=== PATIENT | female | born 1975 | race American Indian/Alaskan Native ===

== ENCOUNTER 2021-07-19 18:39 | Inpatient (IN) | payer SELFPAY ==
[2021-07-19 22:01] LABS: Bacteria,Urine 1+ /HPF (Negative); Bilirubin,Urine MOD (Negative); Blood,Urine SM (Negative); Color,Urine Amber (Yellow); Mucus,Urine 3+ /HPF
[2021-07-19 22:18] LABS: Hematocrit 43.2 % (30.3-42.9); Mean Corpuscular HGB Conc 35 % (30-34); Mean Corpuscular Volume 87 fl (79-97); Platelet Count 386 K/mm3 (140-440); Red Blood Count 4.98 M/mm3 (3.65-5.03); Red Cell Distribution Width 14.9 % (13.2-15.2)
[2021-07-19 22:20] LABS: Ictotest,Urine Negative (Negative)
[2021-07-19 22:34] LABS: Blood Urea Nitrogen 8 mg/dL (7-17); Calcium 9.6 mg/dL (8.4-10.2); Hemolysis Index 41
[2021-07-19 22:38] LABS: Alanine Aminotransferase 12 units/L (7-56); Albumin 3.8 g/dL (3.9-5)
[2021-07-19 22:48] LABS: BUN/Creatinine Ratio 13
[2021-07-19 22:49] LABS: Bilirubin,Direct < 0.2 mg/dL (0-0.2)
[2021-07-19] MEDS ORDERED: ONDANSETRON 4 MG/2 ML INJ IV ONE (23:02)
[2021-07-19] MEDS ORDERED: metroNIDAZOLE/NS 500 MG/100 ML 500 MG/100 ML BAG IV ONE (23:02)
[2021-07-19] MEDS ORDERED: FAMOTIDINE 20 MG/2 ML INJ IV ONE (23:02)
[2021-07-19] MEDS ORDERED: MORPHINE 4 MG/1 ML INJ IV ONE (23:02)
[2021-07-19] MEDS ORDERED: levoFLOXacin 500 MG TAB PO ONE (23:02)
--- NOTE | 2021-07-20 00:33 | Cat Scan Report ---
CT ABDOMEN AND PELVIS WITH CONTRAST INDICATION / CLINICAL INFORMATION: Left lower quadrant pain. TECHNIQUE: Axial CT images were obtained through the abdomen and pelvis after Omnipaque 300, 100 cc I V contrast. All CT scans at this location are performed using CT dose reduction for ALARA by means o f automated exposure control. COMPARISON: None available. FINDINGS: LOWER CHEST: No significant abnormality. LIVER: No significant abnormality. GALLBLADDER: No significant abnormality. BILE DUCTS: No significant abnormality. PANCREAS: No significant abnormality. SPLEEN: No significant abnormality. ADRENALS: No significant abnormality. RIGHT KIDNEY / URETER: No significant abnormality. LEFT KIDNEY / URETER: No significant abnormality. STOMACH / SMALL BOWEL: No significant abnormality. COLON: [place] the sigmoid colon and rectum. A small mesenteric fluid collection is seen measuring 3.4 x 1.8 cm which is not well-defined. Adjacent mesenteric inflammation is present. Mild distention of th e more proximal colon. APPENDIX: No significant abnormality. PERITONEUM: No free fluid. No free air. LYMPH NODES: Retroperitoneal nodes are increased in number, but not significantly increased in size. VASCULAR STRUCTURES: No significant abnormality. URINARY BLADDER: No significant abnormality. REPRODUCTIVE ORGANS: No significant abnormality. ADDITIONAL FINDINGS: Muscular lipoma medial right thigh. SKELETAL SYSTEM: No significant abnormality. IMPRESSION: Probable perforated diverticulitis with developing mesenteric abscess and secondary invo lvement of the adjacent colon. Localized colitis is a secondary possibility. Signer Name: Fran Bose MD Signed: 07/20/2021 12:29 AM Workstation Name: [id number]
[2021-07-20] MEDS ORDERED: ONDANSETRON 4 MG/2 ML INJ IV ONE (00:50)
[2021-07-20] MEDS ORDERED: HYDROmorphone 1 MG/1 ML INJ IV ONE (00:50)
[2021-07-20] MEDS ORDERED: SODIUM CHLORIDE 0.9% 1000 ML 1,000 ML IV ONE (00:50)
--- NOTE | 2021-07-20 01:38 | Emergency Department Report ---
ED Abdominal Pain HPI - General Chief Complaint: Abdominal Pain Stated Complaint: DIVERTICULITIS Source: patient Mode of arrival: Ambulatory Limitations: No Limitations - History of Present Illness Initial Comments: Patient is a 45-year-old -[place] female with a history of chronic diverticulitis and sleep apnea who presents to the ED with complaint of acute onset persistent severe diffuse low abdominal pain, worse in the left lower quadrant area with nausea and diarrhea for the last 1 week, worse in the last 2 days. Patient states that she had some residual ciprofloxacin 500 mg tablets at home which she took for 3 days thinking that this would help improve her s ymptoms. Patient states that she finished those medications over 3 days ago but that the pain has worsened especially in the last 2 days. Patient also complains of lack of appetite and generalized weakness. Patient denies fever, chills, dizziness, syncope, dysuria, urinary frequency and urgency, vaginal discharge, hematochezia, hematemesis, vomiting, low back pain, chest pain or shortness of breath and cough. MD Complaint: abdominal pain (Diffuse low abdominal pain), other (Nausea and diarrhea) -: Sudden, week(s) (1) Location: LLQ, suprapubic Radiation: LLQ, epigastric, suprapubic Severity: severe Severity scale (0 -10): 10 Quality: cramping, sharp Consistency: constant Improves With: nothing Worsens With: nothing Context: other (Suspects flare of diverticulitis) Associated Symptoms: denies other symptoms, nausea, diarrhea, anorexia. denies: vomiting, fever, chills, dysuria, hematemesis, hematochezia, melena, hematuria, syncope - Related Data LMP (females 10-50): 3 weeks Allergies Allergy/AdvReac Type Severity Reaction Status Date / Time Penicillins Allergy Anaphylaxis Verified 07/19/21 21:20 Sulfa (Sulfonamide Allergy Anaphylaxis Verified 07/19/21 21:20 Antibiotics) ED Review of Systems ROS: Stated complaint: DIVERTICULITIS Other details as noted in HPI Constitutional: denies: chills, fever Eyes: denies: eye pain, eye discharge, vision change ENT: denies: ear pain, throat pain Respiratory: denies: cough, shortness of breath, wheezing Cardiovascular: denies: chest pain, palpitations Endocrine: no symptoms reported Gastrointestinal: abdominal pain (Diffuse low abdominal pain worse in the LLQ area), nausea, diarrhea. denies: vomiting Genitourinary: denies: urgency, dysuria, discharge Musculoskeletal: denies: back pain, joint swelling, arthralgia Skin: denies: rash, lesions Neurological: denies: headache, weakness, paresthesias Psychiatric: denies: anxiety, depression Hematological/Lymphatic: denies: easy bleeding, easy bruising ED Past Medical Hx - Past Medical History Additional medical history: Diverticulitis; sleep apnea ED Physical Exam - General Limitations: No Limitations General appearance: alert, in no apparent distress - Head Head exam: Present: atraumatic, normocephalic, normal inspection - Eye Eye exam: Present: normal appearance, PERRL, EOMI Pupils: Present: normal accommodation - ENT ENT exam: Present: normal exam, normal orophraynx, mucous membranes moist, TM's normal bilaterally, normal external ear exam - Neck Neck exam: Present: normal inspection, full ROM - Respiratory Respiratory exam: Present: normal lung sounds bilaterally. Absent: respiratory distress, wheezes, rales, rhonchi, chest wall tenderness - Cardiovascular Cardiovascular Exam: Present: regular rate, normal rhythm, normal heart sounds. Absent: systolic murmur, diastolic murmur, rubs, gallop - GI/Abdominal GI/Abdominal exam: Present: soft, tenderness (Palpable severe left lower quadrant tenderness with guarding), guarding, rebound, normal bowel sounds. Absent: hyperactive bowel sounds, hypoactive bowel sounds, organomegaly - Bi-manual exam: Present: other (Pelvic exam deferred at this time) - Extremities Exam Extremities exam: Present: normal inspection, full ROM, normal capillary refill - Back Exam Back exam: Present: normal inspection, full ROM. Absent: tenderness, CVA tenderness (R), CVA tenderness (L), muscle spasm, paraspinal tenderness, vertebral tenderness - Neurological Exam Neurological exam: Present: alert, oriented X3, CN II-XII intact, normal gait, reflexes normal - Psychiatric Psychiatric exam: Present: normal affect, normal mood - Skin Skin exam: Present: warm, dry, intact, normal color. Absent: rash ED Course Vital Signs 07/19/21 07/19/21 07/19/21 21:08 21:09 23:23 Temperature 98.4 F 98.0 F Pulse Rate 91 H Respiratory 20 18 18 Rate Blood Pressure 138/94 O2 Sat by Pulse 100 Oximetry 07/19/21 07/20/21 23:53 01:00 Temperature Pulse Rate Respiratory 18 18 Rate Blood Pressure O2 Sat by Pulse Oximetry - Reevaluation(s) Reevaluation #1: 07/20/21 01:49 I paged and discussed the patient's case with the general surgeon on-call Dr. Thompson who advised that the patient be kept n.p.o., be started on IV antibiotics and pain control. She also advised that the patient be admitted by the hospitalist physician on-call and she shall consult on the patient in the morning upon admission. ED Medical Decision Making - Lab Data Result diagrams: 07/19/21 21:29 07/19/21 21:29 - Radiology Data Radiology results: report reviewed, image reviewed [place] [id number] Cat Scan Report Signed Patient: CHRIS GUPTA MR#: [id number] [birth year] : 1975 Acct:[id number] Age/Sex: 45 / F ADM Date: 07/19/21 Loc: ED Attending Dr: Ordering Physician: MARISA MANNING Date of Service: 07/19/21 Procedure(s): CT abdomen pelvis w con Accession Number(s): [id number] cc: MARISA MANNING CT ABDOMEN AND PELVIS WITH CONTRAST INDICATION / CLINICAL INFORMATION: Left lower quadrant pain. TECHNIQUE: Axial CT images were obtained through the abdomen and pelvis after Omnipaque 300, [address]. All [address] scans at this location are performed using CT dose reduction for ALARA by means of automated exposure control. COMPARISON: None available. FINDINGS: LOWER CHEST: No significant abnormality. LIVER: No significant abnormality. GALLBLADDER: No significant abnormality. BILE DUCTS: No significant abnormality. PANCREAS: No significant abnormality. SPLEEN: No significant abnormality. ADRENALS: No significant abnormality. RIGHT KIDNEY / URETER: No significant abnormality. LEFT KIDNEY / URETER: No significant abnormality. STOMACH / SMALL BOWEL: No significant abnormality. COLON: [place] the sigmoid colon and rectum. A small mesenteric fluid collection is seen measuring 3.4 x 1.8 cm which is not well-defined. Adjacent mesenteric inflammation is present. Mild distention of the more proximal colon. APPENDIX: No significant abnormality. PERITONEUM: No free fluid. No free air. LYMPH NODES: Retroperitoneal nodes are increased in number, but not significantly increased in size. VASCULAR STRUCTURES: No significant abnormality. URINARY BLADDER: No significant abnormality. REPRODUCTIVE ORGANS: No significant abnormality. ADDITIONAL FINDINGS: Muscular lipoma medial right thigh. SKELETAL SYSTEM: No significant abnormality. IMPRESSION: Probable perforated diverticulitis with developing mesenteric abscess and secondary involvement of the adjacent colon. Localized colitis is a secondary possibility. Signer Name: Fran Bose MD Signed: 07/20/2021 12:29 AM Workstation Name: [id number] Transcribed By: TRINH Dictated By: Fran Bose MD Electronically Authenticated By: Fran Bose MD Signed Date/Time: 07/20/2128 DD/ TD/TT: - Medical Decision Making This is a 45-year-old -[place] female with a history of chronic diverticulitis and sleep apnea who presents to the ED with complaint of acute onset persistent severe diffuse low abdominal pain, worse in the left lower quadrant area with nausea and diarrhea for the last 1 week, worse in the last 2 days. Patient states that she had some residual ciprofloxacin 500 mg tablets at home which she took for 3 days thinking that this would help improve her symptoms. Patient states that she finished those medications over 3 days ago but that the pain has worsened especially in the last 2 days. Patient also complains of lack of appetite and generalized weakness. In the ED, patient is alert and oriented x3 and is not in any distress. Patient is hemodynamically stable. Patient was treated for pain in the ED and also received normal saline 1 L IV bolus x1. Patient also received antiemetics and antacids as well as Levaquin 500 mg p.o. x1 and Flagyl 500 mg IV x1. On reevaluation, patient's pain is well controlled medications. Lab test results were reviewed and showed acute leukocytosis of 15,200. The rest of the lab test results are nonactionable including urinalysis. The abdomen pelvis CT scan with IV contrast showed probable perforated diverticulitis with developing mesenteric abscess and secondary involvement of the adjacent colon. Localized colitis is a secondary possibility. I therefore discussed the patient's case with the ED attending physician Dr. Nadeen Ricketts who agreed with the plan of care. I also paged and discussed the patient's case with the general surgeon on-call Dr. Thompson who advised that the patient be kept n.p.o., started on IV antibiotics and pain medi cations and that the patient be admitted by the hospitalist physician on-call and she shall consult on the patient upon admission in the morning. I also paged and discussed the patient's case with the hospitalist physician on-call Dr. King who admitted the patient to the hospital for evaluation. On reevaluation, patient's pain is well controlled with medications. Patient is currently receiving IV antibiotics. - Differential Diagnosis Diverticulitis; Colitis; Peritonitis; UTI; kidney stones; perforated bowel Critical Care Time: Yes Critical care time in (mins) excluding proc time.: 45 Critical care attestation.: If time is entered above; I have spent that time in minutes in the direct care of this critically ill patient, excluding procedure time. Critical Care Time: 45 minutes of critical time spent on patient education, review of lab test results and imaging reports, consultation with various specialists and chart review and completion. ED Disposition Clinical Impression: Acute abdominal pain in left lower quadrant, Nausea, vomiting and diarrhea Diverticulitis of intestine with perforation and abscess Qualifiers: Diverticulitis site: large intestine Diverticulitis bleeding: without bleeding Qualified Code(s): K57.20 - Diverticulitis of large intestine with perforation and abscess without bleeding Disposition: [facility] Is pt being admited?: Yes Does the pt Need Aspirin: No Condition: Stable Instructions: Abdominal Pain (ED), Abdominal Pain, Adult, [id number], Diverticulitis Referrals: PRIMARY CARE, [Primary Care Provider] - 3-5 Days Time of Disposition: 01:52 Print Language: OCCITAN
[2021-07-20] MEDS ORDERED: ONDANSETRON 4 MG/2 ML INJ IV PRN (01:54)
[2021-07-20 02:09] LABS: Anisocytosis 1+; Platelet Estimate Consistent w Auto; Total Cells Counted 100
[2021-07-20] MEDS ORDERED: MORPHINE 4 MG/1 ML INJ IV ONE (02:21)
[2021-07-20] MEDS ORDERED: MORPHINE 2 MG/1 ML INJ IV PRN (02:31)
[2021-07-20] MEDS ORDERED: oxyCODONE /ACETAMINOPHEN 5-325MG TAB PO PRN (02:31)
[2021-07-20] MEDS ORDERED: MAGNESIUM HYDROXIDE (MOM) ORAL LIQD UDC PO PRN (02:31)
[2021-07-20] MEDS ORDERED: ACETAMINOPHEN 325 MG TAB PO PRN (02:31)
[2021-07-20] MEDS ORDERED: NALOXONE 0.4 MG/1 ML INJ IV PRN (02:31)
--- NOTE | 2021-07-20 02:44 | History and Physical Report ---
History of Present Illness Date of examination: 07/20/21 Date of admission: 07/20/21 Chief complaint: Abdominal pain Nausea, vomiting, and diarrhea History of present illness: Patient is a 45-year-old -[place] female with a history of chronic diverticulitis and sleep apnea who presents to the ED with complaint of acute onset persistent severe diffuse low abdominal pain, worse in the left lower quadrant area with nausea and diarrhea for the last 1 week, worse in the last 2 days. Patient states that she had some residual ciprofloxacin 500 mg tablets at home which she took for 3 days thinking that this would help improve her symptoms. Patient states that she finished those medications over 3 days ago but that the pain has worsened especially in the last 2 days. Patient also complains of lack of appetite and generalized weakness. Patient denies fever, chills, dizziness, syncope, dysuria. She admits to tobacco use, but denies chronic alcohol and illicit drug use. I reviewed patient medication record and vital signs. Reviewed the radiology report of CT of the abdomenshowed probable perforated diverticulitis with abscess per radiologist. General surgeon has been consulted. Past History Past Medical History: other (hernia) Past Surgical History: hernia repair Social history: lives with family, smoking Family history: cancer, diabetes, hypertension Medications and Allergies Allergies Allergy/AdvReac Type Severity Reaction Status Date / Time Penicillins Allergy Anaphylaxis Verified 07/19/21 21:20 Sulfa (Sulfonamide Allergy Anaphylaxis Verified 07/19/21 21:20 Antibiotics) Active Meds: Active Medications Acetaminophen (Acetaminophen 325 Mg Tab) 650 mg PO Q4H PRN PRN Reason: Pain MILD(1-3)/Fever >100.5/FRANCO Famotidine (Famotidine 20 Mg/2 Ml Inj) 20 mg IV BID ALEX Dextrose/Sodium Chloride (D5ns) 1,000 mls @ 75 mls/hr IV DIRECT ALEX Levofloxacin/Dextrose (Levaquin 750mg/150ml) 750 mg in 150 mls @ 100 mls/hr IV Q24H ALEX; Protocol Metronidazole (Flagyl 500 Mg/100 Ml) 500 mg in 100 mls @ 100 mls/hr IV Q8H ALEX; Protocol Magnesium Hydroxide (Magnesium Hydroxide (Mom) Oral Liqd Udc) 30 ml PO Q4H PRN PRN Reason: Constipation Metoclopramide HCl (Metoclopramide 10 Mg/2 Ml Inj) 10 mg IV Q6H PRN PRN Reason: Nausea And Vomiting Morphine Sulfate (Morphine 2 Mg/1 Ml Inj) 2 mg IV Q4H PRN PRN Reason: Pain, Moderate (4-6) Naloxone HCl (Naloxone 0.4 Mg/1 Ml Inj) 0.1 mg IV Q2MIN PRN PRN Reason: Res Rate </= 8 or 02 SAT < 92% Ondansetron HCl (Ondansetron 4 Mg/2 Ml Inj) 4 mg IV Q8H PRN PRN Reason: Nausea And Vomiting Ondansetron HCl (Ondansetron 4 Mg/2 Ml Inj) 4 mg IV Q8H PRN PRN Reason: Nausea And Vomiting Oxycodone/Acetaminophen (Oxycodone /Acetaminophen 5-325mg Tab) 1 tab PO Q6H PRN PRN Reason: Pain, Moderate (4-6) Sodium Chloride (Sodium Chloride 0.9% 10 Ml Flush Syringe) 10 ml IV BID ALEX Last Admin: 07/20/21 02:19 Dose: 10 ml Documented by: Sodium Chloride (Sodium Chloride 0.9% 10 Ml Flush Syringe) 10 ml IV PRN PRN PRN Reason: LINE FLUSH Trazodone HCl (Trazodone 50 Mg Tab) 50 mg PO QHS PRN PRN Reason: Insomnia Review of Systems Ears, nose, mouth and throat: no epistaxis, no bleeding gums Breasts: no discharge Cardiovascular: no chest pain Respiratory: no hemoptysis Gastrointestinal: no abdominal pain, no nausea, no diarrhea Rectal: no hemorrhoids Integumentary: no rash, no pruritis Neurological: no head injury Hematologic/Lymphatic: no easy bruising, no easy bleeding Allergic/Immunologic: no urticaria Exam - Constitutional Vitals: Temp Pulse Resp BP Pulse Ox 98.0 F 76 18 155/89 100 07/19/21 21:09 07/20/21 02:31 07/20/21 02:30 07/20/21 02:31 07/20/21 02:31 General appearance: Present: mild distress, well-nourished - EENT Eyes: Present: PERRL ENT: hearing intact, clear oral mucosa - Neck Neck: Present: supple, normal ROM - Respiratory Respiratory effort: normal Respiratory: bilateral: CTA - Cardiovascular Heart Sounds: Present: S1 & S2. Absent: rub, click - Extremities Extremities: pulses symmetrical, No edema Peripheral Pulses: within normal limits - Abdominal General gastrointestinal: Present: soft, tender, non-distended, normal bowel sounds, other (perforated diverticulitis) Female genitourinary: Present: normal - Integumentary Integumentary: Present: clear, warm, dry - Musculoskeletal Musculoskeletal: gait normal, strength equal bilaterally - Psychiatric Psychiatric: appropriate mood/affect, intact judgment & insight, cooperative - Neurologic Neurologic: CNII-XII intact, moves all extremities - Allied Health Allied health notes reviewed: nursing Results - Labs CBC & Chem 7: 07/19/21 21:29 07/19/21 21:29 Labs: Abnormal lab results 07/19/21 07/19/21 07/19/21 Range/Units 20:30 21:29 21:29 WBC 15.2 H (4.5-11.0) K/mm3 Hgb 15.0 H (10.1-14.3) gm/dl Hct 43.2 H (30.3-42.9) % MCHC 35 H (30-34) % Lymphocytes % (Manual) 36.0 H (13.4-35.0) % Seg Neutrophils # Man 9.3 H (1.8-7.7) K/mm3 Lymphocytes # (Manual) 5.5 H (1.2-5.4) K/mm3 Sodium 135 L (137-145) mmol/L Chloride 96.5 L (98-107) mmol/L Total Protein (6.3-8.2) g/dL Albumin (3.9-5) g/dL Ur Specific [place] 1.046 H (1.003-1.030) Urine WBC (Auto) 8.0 H (0.0-6.0) /HPF U Epithel Cells (Auto) 14.0 H (0-13.0) /HPF 07/19/21 Range/Units 22:04 WBC (4.5-11.0) K/mm3 Hgb (10.1-14.3) gm/dl Hct (30.3-42.9) % MCHC (30-34) % Lymphocytes % (Manual) (13.4-35.0) % Seg Neutrophils # Man (1.8-7.7) K/mm3 Lymphocytes # (Manual) (1.2-5.4) K/mm3 Sodium (137-145) mmol/L Chloride (98-107) mmol/L Total Protein 8.5 H (6.3-8.2) g/dL Albumin 3.8 L (3.9-5) g/dL Ur Specific [place] (1.003-1.030) Urine WBC (Auto) (0.0-6.0) /HPF U Epithel Cells (Auto) (0-13.0) /HPF Assessment and Plan - Patient Problems (1) Acute abdominal pain in left lower quadrant Current Visit: Yes Status: Acute Plan to address problem: Pain management as needed CT of the abdomen showed a probable perforated diverticulitis with developing mesenteric abscess (2) Diverticulitis of intestine with perforation and abscess Current Visit: Yes Status: Acute Qualifiers: Diverticulitis site: large intestine Diverticulitis bleeding: without bleeding Qualified Code(s): K57.20 - Diverticulitis of large intestine with perforation and abscess without bleeding Plan to address problem: General surgeon consulted -follow-up with recommendation Patient started on empiric antibiotic with Levaquin and Flagyl (3) Nausea, vomiting and diarrhea Current Visit: Yes Status: Acute Plan to address problem: Continue antiemetic Started on IV hydration and antibiotic Blood culture (4) Leukocytosis Current Visit: Yes Status: Acute Plan to address problem: Likely secondary to diverticulitis Monitor WBC-empiric antibiotic started Blood culture -follow-up with results (5) DVT prophylaxis Current Visit: Yes Status: Acute Plan to address problem: SCDhold off on anticoagulantpatient may need possible surgery
[2021-07-20] MEDS: D5W/0.9% NACL 1,000 ML IV SCH ×2 (03:49→21:41)
[2021-07-20] MEDS ORDERED: KETOROLAC 30 MG/1 ML INJ IV ONE (04:35)
[2021-07-20] MEDS: metroNIDAZOLE/NS 500 MG/100 ML 500 MG/100 ML BAG IV SCH ×3 (09:16→23:25)
[2021-07-20] MEDS: FAMOTIDINE 20 MG/2 ML INJ IV SCH ×2 (10:52→21:41)
[2021-07-20] MEDS: MORPHINE 2 MG/1 ML INJ IV PRN ×5 (10:53→23:29)
--- NOTE | 2021-07-20 12:31 | Consultation ---
History of Present Illness Consult date: 07/20/21 Reason for consult: abdominal pain - History of present illness History of present illness: 45 year old female presented to ED with a 6 day hx of abdominal pain. She said it was epigastric and LLQ pain that she felt similar to her diverticulitus flares. She took 3 days of cipro but did not have an more abx and does not have a PCP here in [place] (recent transplant) when she normally takes 10 days of cipro and flagyl. She says she was diagnosed with diverticulitis when she was 32 and was having 2 flares a year. Her last flare was about two years ago. She had a colonoscopy about 3 years that she said was normal exception of diverticular disease. She says she was never encouraged to have an elective segmental colon resection because she was told her diverticular disease was 'not that bad'. She had a CT scan that showed some inflammation of the sigmoid and rectum with a 3x2 ill defined fluid collection on the mesentary. There was no free air. She says that her pain is currently a 5/10 but was a 10/10 before she came to the hospital. Past History Past Medical History: other (hiatal hernia, hx of diverticular dz) Past Surgical History: hernia repair, Other (endometriosis surgery) Social history: lives with family, smoking Family history: cancer, diabetes, hypertension Medications and Allergies Allergies Allergy/AdvReac Type Severity Reaction Status Date / Time Penicillins Allergy Anaphylaxis Verified 07/19/21 21:20 Sulfa (Sulfonamide Allergy Anaphylaxis Verified 07/19/21 21:20 Antibiotics) Active Meds: Active Medications Acetaminophen (Acetaminophen 325 Mg Tab) 650 mg PO Q4H PRN PRN Reason: Pain MILD(1-3)/Fever >100.5/FRANCO Famotidine (Famotidine 20 Mg/2 Ml Inj) 20 mg IV BID ALEX Last Admin: 07/20/21 10:52 Dose: 20 mg Documented by: Dextrose/Sodium Chloride (D5ns) 1,000 mls @ 75 mls/hr IV DIRECT ALEX Last Admin: 07/20/21 03:49 Dose: 75 mls/hr Documented by: Levofloxacin/Dextrose (Levaquin 750mg/150ml) 750 mg in 150 mls @ 100 mls/hr IV Q24H ALEX; Protocol Metronidazole (Flagyl 500 Mg/100 Ml) 500 mg in 100 mls @ 100 mls/hr IV Q8H ALEX; Protocol Last Admin: 07/20/21 09:16 Dose: 100 mls/hr Documented by: Magnesium Hydroxide (Magnesium Hydroxide (Mom) Oral Liqd Udc) 30 ml PO Q4H PRN PRN Reason: Constipation Metoclopramide HCl (Metoclopramide 10 Mg/2 Ml Inj) 10 mg IV Q6H PRN PRN Reason: Nausea And Vomiting Morphine Sulfate (Morphine 2 Mg/1 Ml Inj) 3 mg IV Q3H PRN PRN Reason: Pain, Moderate (4-6) Last Admin: 07/20/21 10:53 Dose: 3 mg Documented by: Naloxone HCl (Naloxone 0.4 Mg/1 Ml Inj) 0.1 mg IV Q2MIN PRN PRN Reason: Res Rate </= 8 or 02 SAT < 92% Ondansetron HCl (Ondansetron 4 Mg/2 Ml Inj) 4 mg IV Q8H PRN PRN Reason: Nausea And Vomiting Oxycodone/Acetaminophen (Oxycodone /Acetaminophen 5-325mg Tab) 1 tab PO Q6H PRN PRN Reason: Pain, Moderate (4-6) Sodium Chloride (Sodium Chloride 0.9% 10 Ml Flush Syringe) 10 ml IV BID ALEX Last Admin: 07/20/21 02:19 Dose: 10 ml Documented by: Sodium Chloride (Sodium Chloride 0.9% 10 Ml Flush Syringe) 10 ml IV PRN PRN PRN Reason: LINE FLUSH Trazodone HCl (Trazodone 50 Mg Tab) 50 mg PO QHS PRN PRN Reason: Insomnia Review of Systems All systems: negative - Constitutional fever - Gastrointestinal abdominal pain, nausea Exam Vital Signs Temp Resp BP 98.4 F 20 138/94 07/19/21 21:08 07/19/21 21:08 07/19/21 21:08 - General physical appearance Positive: well developed, no distress, moderate pain - Respiratory Positive: normal expansion, normal respiratory effort - Cardiovascular Heart Sounds: Present: S1 & S2 - Extremities Extremities: no ischemia - Abdomen Abdomen: Present: soft, tender, other (obese, tender to palaption in epigastric and left abdominal area). Absent: distended, guarding, rigid Results - Labs 07/19/21 21:29 07/19/21 21:29 Abnormal lab results 07/19/21 07/19/21 07/19/21 Range/Units 20:30 21:29 21:29 WBC 15.2 H (4.5-11.0) K/mm3 Hgb 15.0 H (10.1-14.3) gm/dl Hct 43.2 H (30.3-42.9) % MCHC 35 H (30-34) % Lymphocytes % (Manual) 36.0 H (13.4-35.0) % Seg Neutrophils # Man 9.3 H (1.8-7.7) K/mm3 Lymphocytes # (Manual) 5.5 H (1.2-5.4) K/mm3 Sodium 135 L (137-145) mmol/L Chloride 96.5 L (98-107) mmol/L Total Protein (6.3-8.2) g/dL Albumin (3.9-5) g/dL Ur Specific [place] 1.046 H (1.003-1.030) Urine WBC (Auto) 8.0 H (0.0-6.0) /HPF U Epithel Cells (Auto) 14.0 H (0-13.0) /HPF 07/19/21 Range/Units 22:04 WBC (4.5-11.0) K/mm3 Hgb (10.1-14.3) gm/dl Hct (30.3-42.9) % MCHC (30-34) % Lymphocytes % (Manual) (13.4-35.0) % Seg Neutrophils # Man (1.8-7.7) K/mm3 Lymphocytes # (Manual) (1.2-5.4) K/mm3 Sodium (137-145) mmol/L Chloride (98-107) mmol/L Total Protein 8.5 H (6.3-8.2) g/dL Albumin 3.8 L (3.9-5) g/dL Ur Specific [place] (1.003-1.030) Urine WBC (Auto) (0.0-6.0) /HPF U Epithel Cells (Auto) (0-13.0) /HPF Diabetes panel 07/19/21 07/19/21 Range/Units 21:29 22:04 Sodium 135 L (137-145) mmol/L Potassium 3.6 (3.6-5.0) mmol/L Chloride 96.5 L (98-107) mmol/L Carbon Dioxide 25 (22-30) mmol/L BUN 8 (7-17) mg/dL Creatinine 0.6 (0.6-1.2) mg/dL Glucose 84 (65-100) mg/dL Calcium 9.6 (8.4-10.2) mg/dL AST 15 (5-40) units/L ALT 12 (7-56) units/L Alkaline Phosphatase 95 (35-129) units/L Total Protein 8.5 H (6.3-8.2) g/dL Albumin 3.8 L (3.9-5) g/dL Calcium panel 07/19/21 07/19/21 Range/Units 21:29 22:04 Calcium 9.6 (8.4-10.2) mg/dL Albumin 3.8 L (3.9-5) g/dL Pituitary panel 07/19/21 Range/Units 21:29 Sodium 135 L (137-145) mmol/L Potassium 3.6 (3.6-5.0) mmol/L Chloride 96.5 L (98-107) mmol/L Carbon Dioxide 25 (22-30) mmol/L BUN 8 (7-17) mg/dL Creatinine 0.6 (0.6-1.2) mg/dL Glucose 84 (65-100) mg/dL Calcium 9.6 (8.4-10.2) mg/dL Adrenal panel 07/19/21 07/19/21 Range/Units 21:29 22:04 Sodium 135 L (137-145) mmol/L Potassium 3.6 (3.6-5.0) mmol/L Chloride 96.5 L (98-107) mmol/L Carbon Dioxide 25 (22-30) mmol/L BUN 8 (7-17) mg/dL Creatinine 0.6 (0.6-1.2) mg/dL Glucose 84 (65-100) mg/dL Calcium 9.6 (8.4-10.2) mg/dL Total Bilirubin 0.40 (0.1-1.2) mg/dL AST 15 (5-40) units/L ALT 12 (7-56) units/L Alkaline Phosphatase 95 (35-129) units/L Total Protein 8.5 H (6.3-8.2) g/dL Albumin 3.8 L (3.9-5) g/dL - Imaging CT scan - abdomen: report reviewed, image reviewed CT scan - pelvis: report reviewed, image reviewed Assessment and Plan 45 year old female with acute on chronic diverticulitis and possible contained micro perforation. Afebrile and stable. Recommend: keep NPO and continue antibiotics. would like to avoid surgery at this time if possible if she shows signs of improvement. If she improves, discussed getting a colonoscopy as an out patient in 6 weeks and then have elective colonic resection. If she decompensates may need to have urgent resection and possible colostomy. She expressed understanding. Will continue to follow.
--- NOTE | 2021-07-20 14:48 | Event Note ---
Date: 07/20/21 Patient seen and examined second IMS note of the day Patient had a complete history and physical earlier this morning Patient complains of abdominal pain 10/10 on pain scale States morphine is not lasting States she needs to be on Dilaudid in the past He has history of recurrent diverticulitis since the age of 32 Her last flareup was 2 years ago Morphine dose adjusted General surgery consulted N.p.o./IV fluids Lab results reviewed
[2021-07-20] MEDS: ONDANSETRON 4 MG/2 ML INJ IV PRN (19:20)
[2021-07-21] MEDS: MORPHINE 2 MG/1 ML INJ IV PRN ×6 (02:58→21:44)
[2021-07-21 06:31] LABS: Basophils # (Auto) 0.1 K/mm3 (0.0-0.1); Basophils % (Auto) 0.6 % (0.0-1.8); Eosinophils # (Auto) 0.2 K/mm3 (0.0-0.4); Eosinophils % (Auto) 2.1 % (0.0-4.3); Hematocrit 38.1 % (30.3-42.9); Hemoglobin 12.9 gm/dl (10.1-14.3); Lymphocytes # (Auto) 2.8 K/mm3 (1.2-5.4); Lymphocytes % (Auto) 29.7 % (13.4-35.0); Mean Corpuscular HGB Conc 34 % (30-34); Mean Corpuscular Volume 87 fl (79-97); Monocytes # (Auto) 0.6 K/mm3 (0.0-0.8); Monocytes % (Auto) 6.7 % (0.0-7.3); Platelet Count 297 K/mm3 (140-440); Red Blood Count 4.37 M/mm3 (3.65-5.03); Red Cell Distribution Width 14.8 % (13.2-15.2)
[2021-07-21 06:43] LABS: Alanine Aminotransferase 6 units/L (7-56); Albumin 2.9 g/dL (3.9-5); Blood Urea Nitrogen 6 mg/dL (7-17); Calcium 8.8 mg/dL (8.4-10.2); Hemolysis Index 10
[2021-07-21 06:44] LABS: BUN/Creatinine Ratio 12
[2021-07-21] MEDS: metroNIDAZOLE/NS 500 MG/100 ML 500 MG/100 ML BAG IV SCH ×2 (08:27→17:26)
[2021-07-21] MEDS: FAMOTIDINE 20 MG/2 ML INJ IV SCH ×2 (10:16→21:44)
[2021-07-21] MEDS: POTASSIUM CHLORIDE 10 MEQ 10 MEQ/100 ML BAG IV SCH ×2 (10:17→10:21)
--- NOTE | 2021-07-21 14:28 | Progress Note ---
Subjective Date of service: 07/21/21 Interval history: Patient is a 45-year-old -[place] female with a history of chronic diverticulitis and sleep apnea who presents to the ED with complaint of acute onset persistent severe diffuse low abdominal pain, worse in the left lower quadrant area with nausea and diarrhea for the last 1 week, worse in the last 2 days. Patient states that she had some residual ciprofloxacin 500 mg tablets at home which she took for 3 days thinking that this would help improve her sy mptoms. Patient states that she finished those medications over 3 days ago but that the pain has worsened especially in the last 2 days. Patient also complains of lack of appetite and generalized weakness. Patient denies fever, chills, dizziness, syncope, dysuria. She admits to tobacco use, but denies chronic alcohol and illicit drug use. I reviewed patient medication record and vital signs. Reviewed the radiology report of CT of the abdomenshowed probable perforated diverticulitis with abscess per radiologist. General surgeon has been consulted. 07/21 patient is alert and oriented and complains of mid and lower abdominal pain on a scale of 6-7 over 10. She denies any fever, chills, nausea or vomiting. She denies any chest pain or shortness of breath. General surgery note review ed. Lab results reviewed 12 point review of systems is unremarkable except as stated above in the history of present illness Assessment and plan Acute recurrent diverticulitis Her last episode was 2 years ago General surgery note reviewed CT of the abdomen pelvis results reviewed Continue medical management for now with IV Levaquin and Flagyl N.p.o. IV fluids Abdominal pain/nausea and vomiting Secondary to above Pain control Leukocytosis Improved ? Etiology-reactive versus infection Hypokalemia Mild Potassium supplements ordered Monitor electrolytes Objective - Constitutional Vitals: Vital Signs - 12hr 07/21/21 07/21/21 07/21/21 08:30 11:58 12:00 Temperature 98.9 F 98.2 F Pulse Rate 63 65 Respiratory 18 18 18 Rate Blood Pressure 166/96 137/88 O2 Sat by Pulse 99 100 99 Oximetry General appearance: Present: no acute distress, well-nourished - EENT Eyes: PERRL, EOM intact ENT: hearing intact, clear oral mucosa - Neck Neck: supple, normal ROM - Respiratory Respiratory effort: normal Respiratory: bilateral: CTA - Cardiovascular Rhythm: regular Heart Sounds: Present: S1 & S2 Extremities: No edema - Gastrointestinal General gastrointestinal: Present: soft, tender Rectal Exam: deferred - Integumentary Integumentary: clear - Musculoskeletal Musculoskeletal: strength equal bilaterally - Neurologic Neurologic: no focal deficits - Psychiatric Psychiatric: appropriate mood/affect - Labs CBC & Chem 7: 07/21/21 05:30 07/21/21 05:30 Labs: Abnormal lab results 07/21/21 Range/Units 05:30 Sodium 135 L (137-145) mmol/L Potassium 3.4 L (3.6-5.0) mmol/L BUN 6 L (7-17) mg/dL Creatinine 0.5 L (0.6-1.2) mg/dL ALT 6 L (7-56) units/L Albumin 2.9 L (3.9-5) g/dL
[2021-07-21] MEDS: D5W/0.9% NACL 1,000 ML IV SCH (17:29)
[2021-07-22] MEDS: MORPHINE 2 MG/1 ML INJ IV PRN ×3 (00:56→08:11)
[2021-07-22] MEDS: metroNIDAZOLE/NS 500 MG/100 ML 500 MG/100 ML BAG IV SCH ×4 (01:01→23:18)
[2021-07-22] MEDS: ONDANSETRON 4 MG/2 ML INJ IV PRN ×2 (04:25→19:12)
[2021-07-22 05:18] LABS: Hematocrit 37.4 % (30.3-42.9); Hemoglobin 12.6 gm/dl (10.1-14.3); Mean Corpuscular HGB Conc 34 % (30-34); Mean Corpuscular Volume 86 fl (79-97); Platelet Count 290 K/mm3 (140-440); Red Blood Count 4.35 M/mm3 (3.65-5.03); Red Cell Distribution Width 14.6 % (13.2-15.2)
[2021-07-22 05:35] LABS: Blood Urea Nitrogen 3 mg/dL (7-17); Calcium 8.5 mg/dL (8.4-10.2); Hemolysis Index 9
[2021-07-22 05:57] LABS: BUN/Creatinine Ratio 4
--- NOTE | 2021-07-22 09:21 | Progress Note ---
Assessment and Plan 45 year old female with acute on chronic diverticulitis and possible contained micro perforation. Remains afebrile and stable. Continues to have normal white blood cell count. Recommend: keep NPO and continue antibiotics. We will start [id number] Toradol today. If pain continues to worsen will repeat CAT scan tomorrow. would like to avoid surgery at this time if possible if she shows signs of improvement. If she improves, discussed getting a colonoscopy as an out patient in 6 weeks and then have elective colonic resection. If she decompensates may need to have urgent resection and possible colostomy. She expressed understanding. Will continue to follow. Subjective Date of service: 07/22/21 Narrative: Patient says that her epigastric pain is a little worse than yesterday. IV pain medication is giving her mild relief. She is able to ambulate without much difficulty. Patient tried some clear liquids but says that it increased her abdominal pain. Patient remained afebrile overnight. Objective Vital Signs - 12hr 07/21/21 07/22/21 07/22/21 21:44 00:56 04:26 Temperature Pulse Rate Respiratory 18 20 20 Rate Blood Pressure O2 Sat by Pulse Oximetry 07/22/21 07/22/21 04:31 05:22 Temperature 98.1 F Pulse Rate 60 Respiratory 16 Rate Blood Pressure 140/79 O2 Sat by Pulse 98 99 Oximetry - General physical appearance well developed, well nourished, no distress, moderate pain - Respiratory normal expansion, normal respiratory effort - Abdomen soft, tender, not guarding, not rigid (Tender to palpation in the epigastric area to moderate to deep palpation.), other (Tender palpation of the epigastric area with moderate to deep palpation) - Labs 07/22/21 04:57 07/22/21 04:57 Diabetes panel 07/22/21 Range/Units 04:57 Sodium 136 L (137-145) mmol/L Potassium 3.6 (3.6-5.0) mmol/L Chloride 100.8 (98-107) mmol/L Carbon Dioxide 26 (22-30) mmol/L BUN 3 L (7-17) mg/dL Creatinine 0.7 (0.6-1.2) mg/dL Glucose 110 H (65-100) mg/dL Calcium 8.5 (8.4-10.2) mg/dL Calcium panel 07/22/21 Range/Units 04:57 Calcium 8.5 (8.4-10.2) mg/dL Pituitary panel 07/22/21 Range/Units 04:57 Sodium 136 L (137-145) mmol/L Potassium 3.6 (3.6-5.0) mmol/L Chloride 100.8 (98-107) mmol/L Carbon Dioxide 26 (22-30) mmol/L BUN 3 L (7-17) mg/dL Creatinine 0.7 (0.6-1.2) mg/dL Glucose 110 H (65-100) mg/dL Calcium 8.5 (8.4-10.2) mg/dL Adrenal panel 07/22/21 Range/Units 04:57 Sodium 136 L (137-145) mmol/L Potassium 3.6 (3.6-5.0) mmol/L Chloride 100.8 (98-107) mmol/L Carbon Dioxide 26 (22-30) mmol/L BUN 3 L (7-17) mg/dL Creatinine 0.7 (0.6-1.2) mg/dL Glucose 110 H (65-100) mg/dL Calcium 8.5 (8.4-10.2) mg/dL
[2021-07-22] MEDS: KETOROLAC 30 MG/1 ML INJ IV SCH ×4 (10:05→23:18)
[2021-07-22] MEDS: FAMOTIDINE 20 MG/2 ML INJ IV SCH ×2 (10:06→21:22)
[2021-07-22] MEDS: METOCLOPRAMIDE 10 MG/2 ML INJ IV PRN (10:08)
[2021-07-22] MEDS: D5W/0.9% NACL 1,000 ML IV SCH ×2 (10:08→21:24)
--- NOTE | 2021-07-22 10:43 | Progress Note ---
Assessment and Plan Assessment and plan: 45 year old female presented to ED with a 6 day hx of abdominal pain. She said it was epigastric and LLQ pain that she felt similar to her diverticulitus flares. She took 3 days of cipro but did not have an more abx and does not have a PCP here in [place] (recent transplant) when she normally takes 10 days of cipro and flagyl. She says she was diagnosed with diverticulitis when she was 32 and was having 2 flares a year. Her last flare was about two years ago. She had a colonoscopy about 3 years that she said was normal exception of diverticular disease. She says she was never encouraged to have an elective segmental colon resection because she was told her diverticular disease was 'not that bad'. She had a CT scan that showed some inflammation of the sigmoid and rectum with a 3x2 ill defined fluid collection on the mesentary. There was no free air. The patient was admitted with diagnosis of acute on chronic diverticulitis with contained microperforation. Patient was kept n.p.o. and started on IV antibiotics. Surgery evaluated the patient and opted for conservative management. Acute on chronic diverticulitis Abdominal pain Leukocytosis 07/22/2021. Continues conservative management per surgery recommendations. Per surgery, If she improves, discussed getting a colonoscopy as an out patient in 6 weeks and then have elective colonic resection. If she decompensates may need to have urgent resection and possible colostomy. Continue IV antibiotics History Interval history: No new issues overnight. Patient complained of abdominal pain with clear liquid diet. Hospitalist Physical - Constitutional Vitals: Temp Pulse Resp BP Pulse Ox 97.8 F 76 16 168/95 99 07/22/21 10:08 07/22/21 10:08 07/22/21 10:08 07/22/21 10:08 07/22/21 10:08 General appearance: Present: no acute distress, well-nourished - EENT Eyes: Present: PERRL, EOM intact ENT: hearing intact, clear oral mucosa, dentition normal - Neck Neck: Present: supple, normal ROM - Respiratory Respiratory effort: normal Respiratory: bilateral: CTA - Cardiovascular Rhythm: regular Heart Sounds: Present: S1 & S2. Absent: gallop, rub - Extremities Extremities: no ischemia, No edema, Full ROM - Abdominal General gastrointestinal: soft, non-tender, non-distended, normal bowel sounds - Integumentary Integumentary: Present: clear, warm, dry - Neurologic Neurologic: CNII-XII intact, moves all extremities Results - Labs CBC & Chem 7: 07/22/21 04:57 07/22/21 04:57 Labs: Laboratory Last Values WBC 9.8 K/mm3 (4.5-11.0) 07/22/21 04:57 RBC 4.35 M/mm3 (3.65-5.03) 07/22/21 04:57 Hgb 12.6 gm/dl (10.1-14.3) 07/22/21 04:57 Hct 37.4 % (30.3-42.9) 07/22/21 04:57 MCV 86 fl (79-97) 07/22/21 04:57 MCH 29 pg (28-32) 07/22/21 04:57 MCHC 34 % (30-34) 07/22/21 04:57 RDW 14.6 % (13.2-15.2) 07/22/21 04:57 Plt Count 290 K/mm3 (140-440) 07/22/21 04:57 Lymph % (Auto) 29.7 % (13.4-35.0) 07/21/21 05:30 [place] % (Auto) 6.7 % (0.0-7.3) 07/21/21 05:30 Eos % (Auto) 2.1 % (0.0-4.3) 07/21/21 05:30 Baso % (Auto) 0.6 % (0.0-1.8) 07/21/21 05:30 Lymph # (Auto) 2.8 K/mm3 (1.2-5.4) 07/21/21 05:30 [place] # (Auto) 0.6 K/mm3 (0.0-0.8) 07/21/21 05:30 Eos # (Auto) 0.2 K/mm3 (0.0-0.4) 07/21/21 05:30 Baso # (Auto) 0.1 K/mm3 (0.0-0.1) 07/21/21 05:30 Add Manual Diff Complete 07/19/21 21:29 Total Counted 100 07/19/21 21:29 Seg Neutrophils % 60.9 % (40.0-70.0) 07/21/21 05:30 Seg Neuts % (Manual) 61.0 % (40.0-70.0) 07/19/21 21:29 Lymphocytes % (Manual) 36.0 % (13.4-35.0) H 07/19/21 21:29 Monocytes % (Manual) 3.0 % (0.0-7.3) 07/19/21 21:29 Nucleated RBC % Not Reportable 07/19/21 21:29 Seg Neutrophils # 5.8 K/mm3 (1.8-7.7) 07/21/21 05:30 Seg Neutrophils # Man 9.3 K/mm3 (1.8-7.7) H 07/19/21 21:29 Band Neutrophils # 0.0 K/mm3 07/19/21 21:29 Lymphocytes # (Manual) 5.5 K/mm3 (1.2-5.4) H 07/19/21 21:29 Abs React Lymphs (Man) 0.0 K/mm3 07/19/21 21:29 Monocytes # (Manual) 0.5 K/mm3 (0.0-0.8) 07/19/21 21:29 Eosinophils # (Manual) 0.0 K/mm3 (0.0-0.4) 07/19/21 21:29 Basophils # (Manual) 0.0 K/mm3 (0.0-0.1) 07/19/21 21:29 Metamyelocytes # 0.0 K/mm3 07/19/21 21:29 Myelocytes # 0.0 K/mm3 07/19/21 21:29 Promyelocytes # 0.0 K/mm3 07/19/21 21:29 Blast Cells # 0.0 K/mm3 07/19/21 21:29 WBC Morphology Not Reportable 07/19/21 21:29 Hypersegmented Neuts Not Reportable 07/19/21 21:29 Hyposegmented Neuts Not Reportable 07/19/21 21:29 Hypogranular Neuts Not Reportable 07/19/21 21:29 Smudge Cells Not Reportable 07/19/21 21:29 Toxic Granulation Not Reportable 07/19/21 21:29 Toxic Vacuolation Not Reportable 07/19/21 21:29 Dohle Bodies Not Reportable 07/19/21 21:29 Pelger-Huet Anomaly Not Reportable 07/19/21 21:29 Chiquita Rods Not Reportable 07/19/21 21:29 Platelet Estimate Consistent w auto 07/19/21 21:29 Clumped Platelets Not Reportable 07/19/21 21:29 Plt Clumps, EDTA Not Reportable 07/19/21 21:29 Large Platelets Not Reportable 07/19/21 21:29 Giant Platelets Not Reportable 07/19/21 21:29 Platelet Satelliting Not Reportable 07/19/21 21:29 Plt Morphology Comment Not Reportable 07/19/21 21:29 RBC Morphology Not Reportable 07/19/21 21:29 Dimorphic RBCs Not Reportable 07/19/21 21:29 Polychromasia Not Reportable 07/19/21 21:29 Hypochromasia Not Reportable 07/19/21 21:29 Poikilocytosis Not Reportable 07/19/21 21:29 Anisocytosis 1+ 07/19/21 21:29 Microcytosis Not Reportable 07/19/21 21:29 Macrocytosis Not Reportable 07/19/21 21:29 Spherocytes Not Reportable 07/19/21 21:29 Pappenheimer Bodies Not Reportable 07/19/21 21:29 Sickle Cells Not Reportable 07/19/21 21:29 Target Cells Not Reportable 07/19/21 21:29 Tear Drop Cells Not Reportable 07/19/21 21:29 Ovalocytes Not Reportable 07/19/21 21:29 Helmet Cells Not Reportable 07/19/21 21:29 [place] Bodies Not Reportable 07/19/21 21:29 Hannah Rings Not Reportable 07/19/21 21:29 [place] Cells Not Reportable 07/19/21 21:29 Bite Cells Not Reportable 07/19/21 21:29 Crenated Cell Not Reportable 07/19/21 21:29 Elliptocytes Not Reportable 07/19/21 21:29 Acanthocytes (Spur) Not Reportable 07/19/21 21:29 Rouleaux Not Reportable 07/19/21 21:29 Hemoglobin C Crystals Not Reportable 07/19/21 21:29 Schistocytes Not Reportable 07/19/21 21:29 Malaria parasites Not Reportable 07/19/21 21:29 Ismael Bodies Not Reportable 07/19/21 21:29 Hem Pathologist Commnt No 07/19/21 21:29 Sodium 136 mmol/L (137-145) L 07/22/21 04:57 Potassium 3.6 mmol/L (3.6-5.0) 07/22/21 04:57 Chloride 100.8 mmol/L (98-107) 07/22/21 04:57 Carbon Dioxide 26 mmol/L (22-30) 07/22/21 04:57 Anion Gap 13 mmol/L 07/22/21 04:57 BUN 3 mg/dL (7-17) L 07/22/21 04:57 Creatinine 0.7 mg/dL (0.6-1.2) 07/22/21 04:57 Estimated GFR > 60 ml/min 07/22/21 04:57 BUN/Creatinine Ratio 4 % 07/22/21 04:57 Glucose 110 mg/dL (65-100) H 07/22/21 04:57 Lactic Acid 0.80 mmol/L (0.7-2.0) 07/20/21 01:18 Calcium 8.5 mg/dL (8.4-10.2) 07/22/21 04:57 Total Bilirubin 0.30 mg/dL (0.1-1.2) 07/21/21 05:30 Direct Bilirubin < 0.2 mg/dL (0-0.2) 07/19/21 22:04 Indirect Bilirubin 0.2 mg/dL 07/19/21 22:04 AST 9 units/L (5-40) 07/21/21 05:30 ALT 6 units/L (7-56) L 07/21/21 05:30 Alkaline Phosphatase 65 units/L (35-129) 07/21/21 05:30 Total Protein 6.5 g/dL (6.3-8.2) D 07/21/21 05:30 Albumin 2.9 g/dL (3.9-5) L 07/21/21 05:30 Albumin/Globulin Ratio 0.8 % 07/21/21 05:30 HCG, Qual Negative (Negative) 07/19/21 22:39 Urine Color [place] (Yellow) 07/19/21 20:30 Urine Turbidity Slightly-cloudy (Clear) 07/19/21 20:30 Urine pH 5.0 (5.0-7.0) 07/19/21 20:30 Ur Specific [place] 1.046 (1.003-1.030) H 07/19/21 20:30 Urine Protein 100 mg/dl mg/dL (Negative) 07/19/21 20:30 Urine Glucose (UA) Neg mg/dL (Negative) 07/19/21 20:30 Urine Ketones 20 mg/dL (Negative) 07/19/21 20:30 Urine Blood Sm (Negative) 07/19/21 20:30 Urine Nitrite Neg (Negative) 07/19/21 20:30 Urine Bilirubin Mod (Negative) 07/19/21 20:30 Urine Ictotest Negative (Negative) 07/19/21 20:30 Urine Urobilinogen 4.0 mg/dL (<2.0) 07/19/21 20:30 Ur Leukocyte Esterase Tr (Negative) 07/19/21 20:30 Urine WBC (Auto) 8.0 /HPF (0.0-6.0) H 07/19/21 20:30 Urine RBC (Auto) 15.0 /HPF (0.0-6.0) 07/19/21 20:30 U Epithel Cells (Auto) 14.0 /HPF (0-13.0) H 07/19/21 20:30 Urine Bacteria (Auto) 1+ /HPF (Negative) 07/19/21 20:30 Urine Mucus 3+ /HPF 07/19/21 20:30 Microbiology: Microbiology 07/20/21 01:12 Peripheral/Venous Blood Culture - Preliminary NO GROWTH AFTER 48 HOURS 07/20/21 01:18 Peripheral/Venous Blood Culture - Preliminary NO GROWTH AFTER 48 HOURS Duncan/IV: Voiding Method Toilet Active Medications - Current Medications Current Medications: Generic Name Dose Route Start Last Admin Trade Name Freq PRN Reason Stop Dose Admin Acetaminophen 650 mg 07/20/21 02:31 Acetaminophen 325 Mg Tab PO Q4H PRN Pain MILD(1-3)/Fever >100.5/FRANCO Famotidine 20 mg 07/20/21 10:00 07/22/21 10:06 Famotidine 20 Mg/2 Ml Inj IV 20 mg BID ALEX Administration Dextrose/Sodium Chloride 1,000 mls @ 75 mls/hr 07/20/21 03:00 07/22/21 10:08 D5ns IV 75 mls/hr DIRECT ALEX Administration Levofloxacin/Dextrose 750 mg in 150 mls @ 100 mls/hr 07/20/21 14:00 07/21/21 14:40 Levaquin 750mg/150ml IV 100 mls/hr Q24H ALEX Administration Protocol Metronidazole 500 mg in 100 mls @ 100 mls/hr 07/20/21 08:00 07/22/21 08:10 Flagyl 500 Mg/100 Ml IV 100 mls/hr Q8H ALEX Administration Protocol Ketorolac Tromethamine 30 mg 07/22/21 09:00 07/22/21 10:05 Ketorolac 30 Mg/1 Ml Inj IV 07/27/21 08:59 30 mg Q6HR ALEX Administration Magnesium Hydroxide 30 ml 07/20/21 02:31 Magnesium Hydroxide (Mom) Oral Liqd Udc PO Q4H PRN Constipation Metoclopramide HCl 10 mg 07/20/21 02:31 07/22/21 10:08 Metoclopramide 10 Mg/2 Ml Inj IV 10 mg Q6H PRN Administration Nausea And Vomiting Morphine Sulfate 3 mg 07/20/21 08:45 07/22/21 08:11 Morphine 2 Mg/1 Ml Inj IV 3 mg Q3H PRN Administration Pain, Moderate (4-6) Naloxone HCl 0.1 mg 07/20/21 02:31 Naloxone 0.4 Mg/1 Ml Inj IV Q2MIN PRN Res Rate </= 8 or 02 SAT < 92% Nystatin 1 applic 07/22/21 10:00 Nystatin Cream 15 Gm Tube TP BID ALEX Ondansetron HCl 4 mg 07/20/21 02:31 07/22/21 04:25 Ondansetron 4 Mg/2 Ml Inj IV 4 mg Q8H PRN Administration Nausea And Vomiting Oxycodone/Acetaminophen 1 tab 07/20/21 02:31 Oxycodone /Acetaminophen 5-325mg Tab PO Q6H PRN Pain, Moderate (4-6) Sodium Chloride 10 ml 07/20/21 02:00 07/22/21 10:11 Sodium Chloride 0.9% 10 Ml Flush Syringe IV 10 ml BID ALEX Administration Sodium Chloride 10 ml 07/20/21 01:54 Sodium Chloride 0.9% 10 Ml Flush Syringe IV PRN PRN LINE FLUSH Trazodone HCl 50 mg 07/20/21 02:38 Trazodone 50 Mg Tab PO QHS PRN Insomnia
[2021-07-22] MEDS: NYSTATIN CREAM 15 GM TUBE TP SCH ×2 (14:02→21:23)
[2021-07-23] MEDS: KETOROLAC 30 MG/1 ML INJ IV SCH ×3 (05:02→21:03)
[2021-07-23] MEDS: D5W/0.9% NACL 1,000 ML IV SCH (05:06)
[2021-07-23 06:10] LABS: Basophils % (Auto) 0.6 % (0.0-1.8); Eosinophils # (Auto) 0.1 K/mm3 (0.0-0.4); Hematocrit 35.9 % (30.3-42.9); Hemoglobin 12.2 gm/dl (10.1-14.3); Lymphocytes # (Auto) 2.5 K/mm3 (1.2-5.4); Lymphocytes % (Auto) 35.5 % (13.4-35.0); Mean Corpuscular HGB Conc 34 % (30-34); Mean Corpuscular Volume 87 fl (79-97); Monocytes # (Auto) 0.6 K/mm3 (0.0-0.8); Monocytes % (Auto) 8.1 % (0.0-7.3); Platelet Count 274 K/mm3 (140-440); Red Blood Count 4.14 M/mm3 (3.65-5.03); Red Cell Distribution Width 14.4 % (13.2-15.2)
[2021-07-23] MEDS: metroNIDAZOLE/NS 500 MG/100 ML 500 MG/100 ML BAG IV SCH ×2 (08:59→17:01)
--- NOTE | 2021-07-23 09:59 | Progress Note ---
Assessment and Plan Assessment and plan: 45 year old female presented to ED with a 6 day hx of abdominal pain. She said it was epigastric and LLQ pain that she felt similar to her diverticulitus flares. She took 3 days of cipro but did not have an more abx and does not have a PCP here in [place] (recent transplant) when she normally takes 10 days of cipro and flagyl. She says she was diagnosed with diverticulitis when she was 32 and was having 2 flares a year. Her last flare was about two years ago. She had a colonoscopy about 3 years that she said was normal exception of diverticular disease. She says she was never encouraged to have an elective segmental colon resection because she was told her diverticular disease was 'not that bad'. She had a CT scan that showed some inflammation of the sigmoid and rectum with a 3x2 ill defined fluid collection on the mesentary. There was no free air. The patient was admitted with diagnosis of acute on chronic diverticulitis with contained microperforation. Patient was kept n.p.o. and started on IV antibiotics. Surgery evaluated the patient and opted for conservative management. Acute on chronic diverticulitis Abdominal pain Leukocytosis 07/22/2021. Continues conservative management per surgery recommendations. Per surgery, If she improves, discussed getting a colonoscopy as an out patient in 6 weeks and then have elective colonic resection. If she decompensates may need to have urgent resection and possible colostomy. Continue IV antibiotics 07/23/2021. Patient reports pain is much improved today. Repeat CT scan per surgery potentially today. Current plan is to continue conservative management and having outpatient colonoscopy in approximately 6 weeks with elective colonic resection. Continue n.p.o. status for now per surgery and IV antibiotics History Interval history: No new issues overnight. Hospitalist Physical - Constitutional Vitals: Temp Pulse Resp BP Pulse Ox 98.3 F 63 20 154/87 99 07/23/21 08:40 07/23/21 08:40 07/23/21 08:40 07/23/21 08:40 07/23/21 08:40 General appearance: Present: no acute distress, well-nourished - EENT Eyes: Present: PERRL, EOM intact ENT: hearing intact, clear oral mucosa, dentition normal - Neck Neck: Present: supple, normal ROM - Respiratory Respiratory effort: normal Respiratory: bilateral: CTA - Cardiovascular Rhythm: regular Heart Sounds: Present: S1 & S2. Absent: gallop, rub - Extremities Extremities: no ischemia, No edema, Full ROM - Abdominal General gastrointestinal: soft, non-tender, non-distended, normal bowel sounds - Integumentary Integumentary: Present: clear, warm, dry - Neurologic Neurologic: CNII-XII intact, moves all extremities Results - Labs CBC & Chem 7: 07/23/21 05:09 07/22/21 04:57 Labs: Laboratory Last Values WBC 7.2 K/mm3 (4.5-11.0) 07/23/21 05:09 RBC 4.14 M/mm3 (3.65-5.03) 07/23/21 05:09 Hgb 12.2 gm/dl (10.1-14.3) 07/23/21 05:09 Hct 35.9 % (30.3-42.9) 07/23/21 05:09 MCV 87 fl (79-97) 07/23/21 05:09 MCH 30 pg (28-32) 07/23/21 05:09 MCHC 34 % (30-34) 07/23/21 05:09 RDW 14.4 % (13.2-15.2) 07/23/21 05:09 Plt Count 274 K/mm3 (140-440) 07/23/21 05:09 Lymph % (Auto) 35.5 % (13.4-35.0) H 07/23/21 05:09 [place] % (Auto) 8.1 % (0.0-7.3) H 07/23/21 05:09 Eos % (Auto) 2.0 % (0.0-4.3) 07/23/21 05:09 Baso % (Auto) 0.6 % (0.0-1.8) 07/23/21 05:09 Lymph # (Auto) 2.5 K/mm3 (1.2-5.4) 07/23/21 05:09 [place] # (Auto) 0.6 K/mm3 (0.0-0.8) 07/23/21 05:09 Eos # (Auto) 0.1 K/mm3 (0.0-0.4) 07/23/21 05:09 Baso # (Auto) 0.0 K/mm3 (0.0-0.1) 07/23/21 05:09 Add Manual Diff Complete 07/19/21 21:29 Total Counted 100 07/19/21 21:29 Seg Neutrophils % 53.8 % (40.0-70.0) 07/23/21 05:09 Seg Neuts % (Manual) 61.0 % (40.0-70.0) 07/19/21 21: Lymphocytes % (Manual) 36.0 % (13.4-35.0) H 07/19/21 21:29 Monocytes % (Manual) 3.0 % (0.0-7.3) 07/19/21 21: Nucleated RBC % Not Reportable 07/19/21 21:29 Seg Neutrophils # 3.9 K/mm3 (1.8-7.7) 07/23/21 05:09 Seg Neutrophils # Man 9.3 K/mm3 (1.8-7.7) H 07/19/21 21:29 Band Neutrophils # 0.0 K/mm3 07/19/21 21:29 Lymphocytes # (Manual) 5.5 K/mm3 (1.2-5.4) H 07/19/21 21:29 Abs React Lymphs (Man) 0.0 K/mm3 07/19/21 21:29 Monocytes # (Manual) 0.5 K/mm3 (0.0-0.8) 07/19/21 21:29 Eosinophils # (Manual) 0.0 K/mm3 (0.0-0.4) 07/19/21 21:29 Basophils # (Manual) 0.0 K/mm3 (0.0-0.1) 07/19/21 21:29 Metamyelocytes # 0.0 K/mm3 07/19/21 21:29 Myelocytes # 0.0 K/mm3 07/19/21 21:29 Promyelocytes # 0.0 K/mm3 07/19/21 21:29 Blast Cells # 0.0 K/mm3 07/19/21 21:29 WBC Morphology Not Reportable 07/19/21 21:29 Hypersegmented Neuts Not Reportable 07/19/21 21:29 Hyposegmented Neuts Not Reportable 07/19/21 21:29 Hypogranular Neuts Not Reportable 07/19/21 21:29 Smudge Cells Not Reportable 07/19/21 21:29 Toxic Granulation Not Reportable 07/19/21 21:29 Toxic Vacuolation Not Reportable 07/19/21 21:29 Dohle Bodies Not Reportable 07/19/21 21:29 Pelger-Huet Anomaly Not Reportable 07/19/21 21:29 Chiquita Rods Not Reportable 07/19/21 21:29 Platelet Estimate Consistent w auto 07/19/21 21:29 Clumped Platelets Not Reportable 07/19/21 21:29 Plt Clumps, EDTA Not Reportable 07/19/21 21:29 Large Platelets Not Reportable 07/19/21 21:29 Giant Platelets Not Reportable 07/19/21 21:29 Platelet Satelliting Not Reportable 07/19/21 21:29 Plt Morphology Comment Not Reportable 07/19/21 21:29 RBC Morphology Not Reportable 07/19/21 21:29 Dimorphic RBCs Not Reportable 07/19/21 21:29 Polychromasia Not Reportable 07/19/21 21:29 Hypochromasia Not Reportable 07/19/21 21:29 Poikilocytosis Not Reportable 07/19/21 21:29 Anisocytosis 1+ 07/19/21 21:29 Microcytosis Not Reportable 07/19/21 21:29 Macrocytosis Not Reportable 07/19/21 21:29 Spherocytes Not Reportable 07/19/21 21:29 Pappenheimer Bodies Not Reportable 07/19/21 21:29 Sickle Cells Not Reportable 07/19/21 21:29 Target Cells Not Reportable 07/19/21 21:29 Tear Drop Cells Not Reportable 07/19/21 21:29 Ovalocytes Not Reportable 07/19/21 21:29 Helmet Cells Not Reportable 07/19/21 21:29 [place] Bodies Not Reportable 07/19/21 21:29 [place] Rings Not Reportable 07/19/21 21:29 [place] Cells Not Reportable 07/19/21 21:29 Bite Cells Not Reportable 07/19/21 21:29 Crenated Cell Not Reportable 07/19/21 21:29 Elliptocytes Not Reportable 07/19/21 21:29 Acanthocytes (Spur) Not Reportable 07/19/21 21:29 Rouleaux Not Reportable 07/19/21 21:29 Hemoglobin C Crystals Not Reportable 07/19/21 21:29 Schistocytes Not Reportable 07/19/21 21:29 Malaria parasites Not Reportable 07/19/21 21:29 Ismael Bodies Not Reportable 07/19/21 21:29 Hem Pathologist Commnt No 07/19/21 21:29 Sodium 136 mmol/L (137-145) L 07/22/21 04:57 Potassium 3.6 mmol/L (3.6-5.0) 07/22/21 04:57 Chloride 100.8 mmol/L (98-107) 07/22/21 04:57 Carbon Dioxide 26 mmol/L (22-30) 07/22/21 04:57 Anion Gap 13 mmol/L 07/22/21 04:57 BUN 3 mg/dL (7-17) L 07/22/21 04:57 Creatinine 0.7 mg/dL (0.6-1.2) 07/22/21 04:57 Estimated GFR > 60 ml/min 07/22/21 04:57 BUN/Creatinine Ratio 4 % 07/22/21 04:57 Glucose 110 mg/dL (65-100) H 07/22/21 04:57 POC Glucose 100 mg/dL (70-105) 07/22/21 17:05 Lactic Acid 0.80 mmol/L (0.7-2.0) 07/20/21 01:18 Calcium 8.5 mg/dL (8.4-10.2) 07/22/21 04:57 Total Bilirubin 0.30 mg/dL (0.1-1.2) 07/21/21 05:30 Direct Bilirubin < 0.2 mg/dL (0-0.2) 07/19/21 22:04 Indirect Bilirubin 0.2 mg/dL 07/19/21 22:04 AST 9 units/L (5-40) 07/21/21 05:30 ALT 6 units/L (7-56) L 07/21/21 05:30 Alkaline Phosphatase 65 units/L (35-129) 07/21/21 05:30 Total Protein 6.5 g/dL (6.3-8.2) D 07/21/21 05:30 Albumin 2.9 g/dL (3.9-5) L 07/21/21 05:30 Albumin/Globulin Ratio 0.8 % 07/21/21 05:30 HCG, Qual Negative (Negative) 07/19/21 22:39 Urine Color [place] (Yellow) 07/19/21 20:30 Urine Turbidity Slightly-cloudy (Clear) 07/19/21 20:30 Urine pH 5.0 (5.0-7.0) 07/19/21 20:30 Ur Specific [place] 1.046 (1.003-1.030) H 07/19/21 20:30 Urine Protein 100 mg/dl mg/dL (Negative) 07/19/21 20:30 Urine Glucose (UA) Neg mg/dL (Negative) 07/19/21 20:30 Urine Ketones 20 mg/dL (Negative) 07/19/21 20:30 Urine Blood Sm (Negative) 07/19/21 20:30 Urine Nitrite Neg (Negative) 07/19/21 20:30 Urine Bilirubin Mod (Negative) 07/19/21 20:30 Urine Ictotest Negative (Negative) 07/19/21 20:30 Urine Urobilinogen 4.0 mg/dL (<2.0) 07/19/21 20:30 Ur Leukocyte Esterase Tr (Negative) 07/19/21 20:30 Urine WBC (Auto) 8.0 /HPF (0.0-6.0) H 07/19/21 20:30 Urine RBC (Auto) 15.0 /HPF (0.0-6.0) 07/19/21 20:30 U Epithel Cells (Auto) 14.0 /HPF (0-13.0) H 07/19/21 20:30 Urine Bacteria (Auto) 1+ /HPF (Negative) 07/19/21 20:30 Urine Mucus 3+ /HPF 07/19/21 20:30 Microbiology: Microbiology 07/20/21 01:12 Peripheral/Venous Blood Culture - Preliminary NO GROWTH AFTER 72 HOURS 07/20/21 01:18 Peripheral/Venous Blood Culture - Preliminary NO GROWTH AFTER 72 HOURS Duncan/IV: Voiding Method Toilet Active Medications - Current Medications Current Medications: Generic Name Dose Route Start Last Admin Trade Name Freq PRN Reason Stop Dose Admin Acetaminophen 650 mg 07/20/21 02:31 Acetaminophen 325 Mg Tab PO Q4H PRN Pain MILD(1-3)/Fever >100.5/FRANCO Famotidine 20 mg 07/20/21 10:00 07/22/21 21:22 Famotidine 20 Mg/2 Ml Inj IV 20 mg BID ALEX Administration Dextrose/Sodium Chloride 1,000 mls @ 75 mls/hr 07/20/21 03:00 07/23/21 05:06 D5ns IV 75 mls/hr DIRECT ALEX Administration Levofloxacin/Dextrose 750 mg in 150 mls @ 100 mls/hr 07/20/21 14:00 07/22/21 14:02 Levaquin 750mg/150ml IV 100 mls/hr Q24H ALEX Administration Protocol Metronidazole 500 mg in 100 mls @ 100 mls/hr 07/20/21 08:00 07/22/21 23:18 Flagyl 500 Mg/100 Ml IV 100 mls/hr Q8H ALEX Administration Protocol Ketorolac Tromethamine 30 mg 07/22/21 09:00 07/23/21 05:02 Ketorolac 30 Mg/1 Ml Inj IV 07/27/21 08:59 30 mg Q6HR ALEX Administration Magnesium Hydroxide 30 ml 07/20/21 02:31 Magnesium Hydroxide (Mom) Oral Liqd Udc PO Q4H PRN Constipation Metoclopramide HCl 10 mg 07/20/21 02:31 07/22/21 10:08 Metoclopramide 10 Mg/2 Ml Inj IV 10 mg Q6H PRN Administration Nausea And Vomiting Morphine Sulfate 3 mg 07/20/21 08:45 07/22/21 08:11 Morphine 2 Mg/1 Ml Inj IV 3 mg Q3H PRN Administration Pain, Moderate (4-6) Naloxone HCl 0.1 mg 07/20/21 02:31 Naloxone 0.4 Mg/1 Ml Inj IV Q2MIN PRN Res Rate </= 8 or 02 SAT < 92% Nystatin 1 applic 07/22/21 10:00 07/22/21 21:23 Nystatin Cream 15 Gm Tube TP 1 applic BID ALEX Administration Ondansetron HCl 4 mg 07/20/21 02:31 07/22/21 19:12 Ondansetron 4 Mg/2 Ml Inj IV 4 mg Q8H PRN Administration Nausea And Vomiting Oxycodone/Acetaminophen 1 tab 07/20/21 02:31 Oxycodone /Acetaminophen 5-325mg Tab PO Q6H PRN Pain, Moderate (4-6) Sodium Chloride 10 ml 07/20/21 02:00 07/22/21 21:22 Sodium Chloride 0.9% 10 Ml Flush Syringe IV 10 ml BID ALEX Administration Sodium Chloride 10 ml 07/20/21 01:54 Sodium Chloride 0.9% 10 Ml Flush Syringe IV PRN PRN LINE FLUSH Trazodone HCl 50 mg 07/20/21 02:38 Trazodone 50 Mg Tab PO QHS PRN Insomnia
--- NOTE | 2021-07-23 10:37 | Progress Note ---
Assessment and Plan 45 year old female with acute on chronic diverticulitis and possible contained micro perforation. Remains afebrile and stable. Continues to have normal white blood cell count. Recommend: Continue antibiotics. We will do a trial of full liquids today. If patient does well today we will consider advancing diet with possible discharge tomorrow from general surgery perspective. Continue [id number] Toradol today. would like to avoid surgery at this time if possible if she shows signs of improvement. If she improves, discussed getting a colonoscopy as an out patient in 6 weeks and then have elective colonic resection. If she decompensates may need to have urgent resection and possible colostomy. She expressed understanding. Will continue to follow. Subjective Date of service: 07/23/21 Narrative: No acute events overnight. Patient says that her pain is much improved after [id number] Toradol the last 24 hours. Patient says she is passing gas and ambulating around her room but wants to take a walk in the hallway. Patient denies any nausea vomiting. Objective Vital Signs - 12hr 07/22/21 07/23/21 07/23/21 23:39 04:12 08:40 Temperature 98.1 F 98.3 F Pulse Rate 59 L 69 63 Respiratory 16 20 20 Rate Blood Pressure 146/83 143/88 154/87 O2 Sat by Pulse 98 100 99 Oximetry - General physical appearance well developed, no distress, moderate pain - Respiratory normal expansion - Abdomen other (Soft, less tender to palpation epigastric area.) - Neurologic normal coordination - Psychiatric oriented to time, oriented to person, oriented to place - Labs 07/23/21 05:09 07/22/21 04:57
[2021-07-23] MEDS: FAMOTIDINE 20 MG/2 ML INJ IV SCH ×2 (11:59→22:30)
[2021-07-23] MEDS: NYSTATIN CREAM 15 GM TUBE TP SCH (12:07)
[2021-07-23] MEDS: METOCLOPRAMIDE 10 MG/2 ML INJ IV PRN (17:00)
[2021-07-23] MEDS: SIMETHICONE 80 MG CHEW TAB PO PRN (22:30)
[2021-07-23] MEDS: traZODone 50 MG TAB PO PRN (22:31)
[2021-07-24] MEDS: D5W/0.9% NACL 1,000 ML IV SCH ×2 (03:24→21:23)
[2021-07-24] MEDS: NYSTATIN CREAM 15 GM TUBE TP SCH ×3 (06:44→21:25)
[2021-07-24] MEDS: metroNIDAZOLE/NS 500 MG/100 ML 500 MG/100 ML BAG IV SCH ×4 (06:50→23:43)
[2021-07-24] MEDS: KETOROLAC 30 MG/1 ML INJ IV SCH ×5 (06:52→21:24)
--- NOTE | 2021-07-24 08:40 | Progress Note ---
Assessment and Plan Assessment and plan: 45 year old female presented to ED with a 6 day hx of abdominal pain. She said it was epigastric and LLQ pain that she felt similar to her diverticulitus flares. She took 3 days of cipro but did not have an more abx and does not have a PCP here in [place] (recent transplant) when she normally takes 10 days of cipro and flagyl. She says she was diagnosed with diverticulitis when she was 32 and was having 2 flares a year. Her last flare was about two years ago. She had a colonoscopy about 3 years that she said was normal exception of diverticular disease. She says she was never encouraged to have an elective segmental colon resection because she was told her diverticular disease was 'not that bad'. She had a CT scan that showed some inflammation of the sigmoid and rectum with a 3x2 ill defined fluid collection on the mesentary. There was no free air. The patient was admitted with diagnosis of acute on chronic diverticulitis with contained microperforation. Patient was kept n.p.o. and started on IV antibiotics. Surgery evaluated the patient and opted for conservative management. Acute on chronic diverticulitis Abdominal pain Leukocytosis 07/22/2021. Continues conservative management per surgery recommendations. Per surgery, If she improves, discussed getting a colonoscopy as an out patient in 6 weeks and then have elective colonic resection. If she decompensates may need to have urgent resection and possible colostomy. Continue IV antibiotics 07/23/2021. Patient reports pain is much improved today. Repeat CT scan per surgery potentially today. Current plan is to continue conservative management and having outpatient colonoscopy in approximately 6 weeks with elective colonic resection. Continue n.p.o. status for now per surgery and IV antibiotics 07/24/2021. Continue IV antibiotics. Advance diet as tolerated per surgery recommendations. Continue pain control with Toradol. History Interval history: No new issues overnight. Hospitalist Physical - Constitutional Vitals: Temp Pulse Resp BP Pulse Ox 98.3 F 77 18 146/98 98 07/24/21 03:52 07/24/21 03:52 07/24/21 03:52 07/24/21 03:52 07/24/21 08:32 General appearance: Present: no acute distress, well-nourished - EENT Eyes: Present: PERRL, EOM intact ENT: hearing intact, clear oral mucosa, dentition normal - Neck Neck: Present: supple, normal ROM - Respiratory Respiratory effort: normal Respiratory: bilateral: CTA - Cardiovascular Rhythm: regular Heart Sounds: Present: S1 & S2. Absent: gallop, rub - Extremities Extremities: no ischemia, No edema, Full ROM - Abdominal General gastrointestinal: soft, non-tender, non-distended, normal bowel sounds - Integumentary Integumentary: Present: clear, warm, dry - Neurologic Neurologic: CNII-XII intact, moves all extremities Results - Labs CBC & Chem 7: 07/23/21 05:09 07/22/21 04:57 Labs: Laboratory Last Values WBC 7.2 K/mm3 (4.5-11.0) 07/23/21 05:09 RBC 4.14 M/mm3 (3.65-5.03) 07/23/21 05:09 Hgb 12.2 gm/dl (10.1-14.3) 07/23/21 05:09 Hct 35.9 % (30.3-42.9) 07/23/21 05:09 MCV 87 fl (79-97) 07/23/21 05:09 MCH 30 pg (28-32) 07/23/21 05:09 MCHC 34 % (30-34) 07/23/21 05:09 RDW 14.4 % (13.2-15.2) 07/23/21 05:09 Plt Count 274 K/mm3 (140-440) 07/23/21 05:09 Lymph % (Auto) 35.5 % (13.4-35.0) H 07/23/21 05:09 [place] % (Auto) 8.1 % (0.0-7.3) H 07/23/21 05:09 Eos % (Auto) 2.0 % (0.0-4.3) 07/23/21 05:09 Baso % (Auto) 0.6 % (0.0-1.8) 07/23/21 05:09 Lymph # (Auto) 2.5 K/mm3 (1.2-5.4) 07/23/21 05:09 [place] # (Auto) 0.6 K/mm3 (0.0-0.8) 07/23/21 05:09 Eos # (Auto) 0.1 K/mm3 (0.0-0.4) 07/23/21 05:09 Baso # (Auto) 0.0 K/mm3 (0.0-0.1) 07/23/21 05:09 Add Manual Diff Complete 07/19/21 21:29 Total Counted 100 07/19/21 21:29 Seg Neutrophils % 53.8 % (40.0-70.0) 07/23/21 05:09 Seg Neuts % (Manual) 61.0 % (40.0-70.0) 07/19/21 21:29 Lymphocytes % (Manual) 36.0 % (13.4-35.0) H 07/19/21 21:29 Monocytes % (Manual) 3.0 % (0.0-7.3) 07/19/21 21: Nucleated RBC % Not Reportable 07/19/21 21:29 Seg Neutrophils # 3.9 K/mm3 (1.8-7.7) 07/23/21 05:09 Seg Neutrophils # Man 9.3 K/mm3 (1.8-7.7) H 07/19/21 21:29 Band Neutrophils # 0.0 K/mm3 07/19/21 21:29 Lymphocytes # (Manual) 5.5 K/mm3 (1.2-5.4) H 07/19/21 21:29 Abs React Lymphs (Man) 0.0 K/mm3 07/19/21 21:29 Monocytes # (Manual) 0.5 K/mm3 (0.0-0.8) 07/19/21 21:29 Eosinophils # (Manual) 0.0 K/mm3 (0.0-0.4) 07/19/21 21:29 Basophils # (Manual) 0.0 K/mm3 (0.0-0.1) 07/19/21 21:29 Metamyelocytes # 0.0 K/mm3 07/19/21 21:29 Myelocytes # 0.0 K/mm3 07/19/21 21:29 Promyelocytes # 0.0 K/mm3 07/19/21 21:29 Blast Cells # 0.0 K/mm3 07/19/21 21:29 WBC Morphology Not Reportable 07/19/21 21:29 Hypersegmented Neuts Not Reportable 07/19/21 21:29 Hyposegmented Neuts Not Reportable 07/19/21 21:29 Hypogranular Neuts Not Reportable 07/19/21 21:29 Smudge Cells Not Reportable 07/19/21 21:29 Toxic Granulation Not Reportable 07/19/21 21:29 Toxic Vacuolation Not Reportable 07/19/21 21:29 Dohle Bodies Not Reportable 07/19/21 21:29 Pelger-[place]uet Anomaly Not Reportable 07/19/21 21:29 Chiquita Rods Not Reportable 07/19/21 21:29 Platelet Estimate Consistent w auto 07/19/21 21:29 Clumped Platelets Not Reportable 07/19/21 21:29 Plt Clumps, EDTA Not Reportable 07/19/21 21:29 Large Platelets Not Reportable 07/19/21 21:29 Giant Platelets Not Reportable 07/19/21 21:29 Platelet Satelliting Not Reportable 07/19/21 21:29 Plt Morphology Comment Not Reportable 07/19/21 21:29 RBC Morphology Not Reportable 07/19/21 21:29 Dimorphic RBCs Not Reportable 07/19/21 21:29 Polychromasia Not Reportable 07/19/21 21:29 Hypochromasia Not Reportable 07/19/21 21:29 Poikilocytosis Not Reportable 07/19/21 21:29 Anisocytosis 1+ 07/19/21 21:29 Microcytosis Not Reportable 07/19/21 21:29 Macrocytosis Not Reportable 07/19/21 21:29 Spherocytes Not Reportable 07/19/21 21:29 Pappenheimer Bodies Not Reportable 07/19/21 21:29 Sickle Cells Not Reportable 07/19/21 21:29 Target Cells Not Reportable 07/19/21 21:29 Tear Drop Cells Not Reportable 07/19/21 21:29 Ovalocytes Not Reportable 07/19/21 21:29 Helmet Cells Not Reportable 07/19/21 21:29 [place] Bodies Not Reportable 07/19/21 21:29 [place] Rings Not Reportable 07/19/21 21:29 [place] Cells Not Reportable 07/19/21 21:29 Bite Cells Not Reportable 07/19/21 21:29 Crenated Cell Not Reportable 07/19/21 21:29 Elliptocytes Not Reportable 07/19/21 21:29 Acanthocytes (Spur) Not Reportable 07/19/21 21:29 Rouleaux Not Reportable 07/19/21 21:29 Hemoglobin C Crystals Not Reportable 07/19/21 21:29 Schistocytes Not Reportable 07/19/21 21:29 Malaria parasites Not Reportable 07/19/21 21:29 Ismael Bodies Not Reportable 07/19/21 21:29 Hem Pathologist Commnt No 07/19/21 21:29 Sodium 136 mmol/L (137-145) L 07/22/21 04:57 Potassium 3.6 mmol/L (3.6-5.0) 07/22/21 04:57 Chloride 100.8 mmol/L (98-107) 07/22/21 04:57 Carbon Dioxide 26 mmol/L (22-30) 07/22/21 04:57 Anion Gap 13 mmol/L 07/22/21 04:57 BUN 3 mg/dL (7-17) L 07/22/21 04:57 Creatinine 0.7 mg/dL (0.6-1.2) 07/22/21 04:57 Estimated GFR > 60 ml/min 07/22/21 04:57 BUN/Creatinine Ratio 4 % 07/22/21 04:57 Glucose 110 mg/dL (65-100) H 07/22/21 04:57 POC Glucose 100 mg/dL (70-105) 07/22/21 17:05 Lactic Acid 0.80 mmol/L (0.7-2.0) 07/20/21 01:18 Calcium 8.5 mg/dL (8.4-10.2) 07/22/21 04:57 Total Bilirubin 0.30 mg/dL (0.1-1.2) 07/21/21 05:30 Direct Bilirubin < 0.2 mg/dL (0-0.2) 07/19/21 22:04 Indirect Bilirubin 0.2 mg/dL 07/19/21 22:04 AST 9 units/L (5-40) 07/21/21 05:30 ALT 6 units/L (7-56) L 07/21/21 05:30 Alkaline Phosphatase 65 units/L (35-129) 07/21/21 05:30 Total Protein 6.5 g/dL (6.3-8.2) D 07/21/21 05:30 Albumin 2.9 g/dL (3.9-5) L 07/21/21 05:30 Albumin/Globulin Ratio 0.8 % 07/21/21 05:30 HCG, Qual Negative (Negative) 07/19/21 22:39 Urine Color [place] (Yellow) 07/19/21 20:30 Urine Turbidity Slightly-cloudy (Clear) 07/19/21 20:30 Urine pH 5.0 (5.0-7.0) 07/19/21 20:30 Ur Specific [place] 1.046 (1.003-1.030) H 07/19/21 20:30 Urine Protein 100 mg/dl mg/dL (Negative) 07/19/21 20:30 Urine Glucose (UA) Neg mg/dL (Negative) 07/19/21 20:30 Urine Ketones 20 mg/dL (Negative) 07/19/21 20:30 Urine Blood Sm (Negative) 07/19/21 20:30 Urine Nitrite Neg (Negative) 07/19/21 20:30 Urine Bilirubin Mod (Negative) 07/19/21 20:30 Urine Ictotest Negative (Negative) 07/19/21 20:30 Urine Urobilinogen 4.0 mg/dL (<2.0) 07/19/21 20:30 Ur Leukocyte Esterase Tr (Negative) 07/19/21 20:30 Urine WBC (Auto) 8.0 /HPF (0.0-6.0) H 07/19/21 20:30 Urine RBC (Auto) 15.0 /HPF (0.0-6.0) 07/19/21 20:30 U Epithel Cells (Auto) 14.0 /HPF (0-13.0) H 07/19/21 20:30 Urine Bacteria (Auto) 1+ /HPF (Negative) 07/19/21 20:30 Urine Mucus 3+ /HPF 07/19/21 20:30 Microbiology: Microbiology 07/20/21 01:12 Peripheral/Venous Blood Culture - Preliminary NO GROWTH AFTER 4 DAYS 07/20/21 01:18 Peripheral/Venous Blood Culture - Preliminary NO GROWTH AFTER 4 DAYS Duncan/IV: Voiding Method Toilet Active Medications - Current Medications Current Medications: Generic Name Dose Route Start Last Admin Trade Name Freq PRN Reason Stop Dose Admin Acetaminophen 650 mg 07/20/21 02:31 Acetaminophen 325 Mg Tab PO Q4H PRN Pain MILD(1-3)/Fever >100.5/FRANCO Famotidine 20 mg 07/20/21 10:00 07/23/21 22:30 Famotidine 20 Mg/2 Ml Inj IV 20 mg BID ALEX Administration Dextrose/Sodium Chloride 1,000 mls @ 75 mls/hr 07/20/21 03:00 07/24/21 03:24 D5ns IV 75 mls/hr DIRECT ALEX Administration Levofloxacin/Dextrose 750 mg in 150 mls @ 100 mls/hr 07/20/21 14:00 07/23/21 14:02 Levaquin 750mg/150ml IV 100 mls/hr Q24H ALEX Administration Protocol Metronidazole 500 mg in 100 mls @ 100 mls/hr 07/20/21 08:00 07/24/21 08:30 Flagyl 500 Mg/100 Ml IV Not Given Q8H [facility] Protocol Ketorolac Tromethamine 30 mg 07/22/21 09:00 07/24/21 06:52 Ketorolac 30 Mg/1 Ml Inj IV 07/27/21 08:59 30 mg Q6HR ALEX Administration Magnesium Hydroxide 30 ml 07/20/21 02:31 Magnesium Hydroxide (Mom) Oral Liqd Udc PO Q4H PRN Constipation Metoclopramide HCl 10 mg 07/20/21 02:31 07/23/21 17:00 Metoclopramide 10 Mg/2 Ml Inj IV 10 mg Q6H PRN Administration Nausea And Vomiting Morphine Sulfate 3 mg 07/20/21 08:45 07/22/21 08:11 Morphine 2 Mg/1 Ml Inj IV 3 mg Q3H PRN Administration Pain, Moderate (4-6) Naloxone HCl 0.1 mg 07/20/21 02:31 Naloxone 0.4 Mg/1 Ml Inj IV Q2MIN PRN Res Rate </= 8 or 02 SAT < 92% Nystatin 1 applic 07/22/21 10:00 07/24/21 06:44 Nystatin Cream 15 Gm Tube TP Not Given BID ALEX Ondansetron HCl 4 mg 07/20/21 02:31 07/22/21 19:12 Ondansetron 4 Mg/2 Ml Inj IV 4 mg Q8H PRN Administration Nausea And Vomiting Oxycodone/Acetaminophen 1 tab 07/20/21 02:31 Oxycodone /Acetaminophen 5-325mg Tab PO Q6H PRN Pain, Moderate (4-6) Simethicone 80 mg 07/23/21 21:37 07/23/21 22:30 Simethicone 80 Mg Chew Tab PO 80 mg Q6H PRN Administration Gas pain Sodium Chloride 10 ml 07/20/21 02:00 07/23/21 22:31 Sodium Chloride 0.9% 10 Ml Flush Syringe IV 10 ml BID ALEX Administration Sodium Chloride 10 ml 07/20/21 01:54 Sodium Chloride 0.9% 10 Ml Flush Syringe IV PRN PRN LINE FLUSH Trazodone HCl 50 mg 07/20/21 02:38 07/23/21 22:31 Trazodone 50 Mg Tab PO 50 mg QHS PRN Administration Insomnia
[2021-07-24] MEDS: ONDANSETRON 4 MG/2 ML INJ IV PRN (09:21)
[2021-07-24] MEDS: FAMOTIDINE 20 MG/2 ML INJ IV SCH ×2 (09:21→21:24)
[2021-07-24] MEDS: SIMETHICONE 80 MG CHEW TAB PO PRN (09:28)
--- NOTE | 2021-07-24 13:47 | Progress Note ---
Assessment and Plan 45 year old female with acute on chronic diverticulitis and possible contained micro perforation. Remains afebrile and stable. Continues to have normal white blood cell count. Tolerating full liquids. Recommend: Patient can be discharged to home today from general surgery perspective. Patient advised to stay on full liquids for the next few days and advance as tolerated. Patient advised to consult a colorectal surgeon to have a colonoscopy no sooner than 6 weeks and have a discussion about elective sigmoidectomy so she can have primary anastomosis. Patient should be discharged with 6 more days of oral Cipro and Flagyl. Patient to see me in office next week to complete some paperwork. Subjective Date of service: 07/24/21 Narrative: No acute events overnight. Patient says that her pain continues to be improved. She tolerated full liquids without nausea or vomiting. She feels bloated but is passing gas. She is ambulating well. She says she is ready to go home. Objective Vital Signs - 12hr 07/24/21 07/24/21 07/24/21 02:00 03:00 03:52 Temperature 98.3 F Pulse Rate 78 77 Respiratory 18 Rate Blood Pressure 146/98 O2 Sat by Pulse 98 99 Oximetry 07/24/21 07/24/21 08:32 08:40 Temperature 98.3 F Pulse Rate 78 Respiratory 20 Rate Blood Pressure 155/93 O2 Sat by Pulse 98 100 Oximetry - General physical appearance well developed, no distress, no pain - Respiratory normal expansion, normal respiratory effort - Abdomen soft, not rebound, not guarding, not rigid, other (Mild tenderness in the epigastric area.) - Psychiatric oriented to time, oriented to person, oriented to place - Labs 07/23/21 05:09 07/22/21 04:57
[2021-07-24] MEDS: METOCLOPRAMIDE 10 MG/2 ML INJ IV PRN (16:07)
[2021-07-24] MEDS: traZODone 50 MG TAB PO PRN (23:42)
[2021-07-25] MEDS: KETOROLAC 30 MG/1 ML INJ IV SCH ×4 (03:29→12:12)
[2021-07-25] MEDS: ONDANSETRON 4 MG/2 ML INJ IV PRN (04:28)
[2021-07-25] MEDS: metroNIDAZOLE/NS 500 MG/100 ML 500 MG/100 ML BAG IV SCH (08:27)
--- NOTE | 2021-07-25 08:40 | Discharge Summary ---
Providers - Providers Date of Admission: 07/20/21 07:27 Date of discharge: 07/25/21 Attending physician: RICARDO REYEZ 07/20/21 01:45 Consult to Physician [CONS] Stat Comment: To consult on patient in the AM Consulting Provider: SHRUTHI PAULINO Physician Instructions: NPO, IV Abx, Pain control, Hospitalist admit Reason For Exam: Perforated Diverticulitis Primary care physician: [employer] Hospitalization Reason for admission: Diverticulitis with microperforation Condition: Stable Hospital course: 45 year old female presented to ED with a 6 day hx of abdominal pain. She said it was epigastric and LLQ pain that she felt similar to her diverticulitus flares. She took 3 days of cipro but did not have an more abx and does not have a PCP here in [place] (recent transplant) when she normally takes 10 days of cipro and flagyl. She says she was diagnosed with diverticulitis when she was 32 and was having 2 flares a year. Her last flare was about two years ago. She had a colonoscopy about 3 years that she said was normal exception of diverticular disease. She says she was never encouraged to have an elective segmental colon resection because she was told her diverticular disease was 'not that bad'. She had a CT scan that showed some inflammation of the sigmoid and rectum with a 3x2 ill defined fluid collection on the mesentary. There was no free air. The patient was admitted with diagnosis of acute on chronic diverticulitis with contained microperforation, abdominal pain and leukocytosis. Patient was kept n.p.o. and started on IV antibiotics. Surgery evaluated the patient and opted for conservative management. Hospital course: 07/22/2021. Continues conservative management per surgery recommendations. Per surgery, If she improves, discussed getting a colonoscopy as an out patient in 6 weeks and then have elective colonic resection. If she decompensates may need to have urgent resection and possible colostomy. Continue IV antibiotics 07/23/2021. Patient reports pain is much improved today. Repeat CT scan per surgery potentially today. Current plan is to continue conservative management and having outpatient colonoscopy in approximately 6 weeks with elective colonic resection. Continue n.p.o. status for now per surgery and IV antibiotics 07/24/2021. Continue IV antibiotics. Advance diet as tolerated per surgery recommendations. Continue pain control with Toradol. 07/25/2021. Surgery recommends that patient can discharge home. Patient advised to stay on full liquids for the next few days and advance as tolerated. Patient advised to consult a colorectal surgeon to have a colonoscopy no sooner than 6 weeks and have a discussion about elective sigmoidectomy so she can have primary anastomosis. Patient will discharge with a week of Cipro and Flagyl. Follow- up general surgery office as an outpatient. Disposition: 01 HOME / SELF CARE / HOMELESS Final Discharge Diagnosis (Prints w/discharge instructions): Acute on chronic diverticulitis with contained microperforation, abdominal pain, leukocytosis Core Measure Documentation - Palliative Care Palliative Care/ Comfort Measures: Not Applicable - Core Measures Any of the following diagnoses?: none Exam - Constitutional Vitals: Temp Pulse Resp BP Pulse Ox 98.4 F 112 H 22 154/104 99 07/25/21 08:26 07/25/21 08:26 07/25/21 08:26 07/25/21 08:26 07/25/21 08:26 General appearance: Present: no acute distress, well-nourished - EENT Eyes: Present: PERRL ENT: hearing intact, clear oral mucosa - Neck Neck: Present: supple, normal ROM - Respiratory Respiratory effort: normal Respiratory: bilateral: CTA - Cardiovascular Heart Sounds: Present: S1 & S2. Absent: rub, click - Extremities Extremities: pulses symmetrical, No edema Peripheral Pulses: within normal limits - Abdominal General gastrointestinal: Present: soft, non-tender, non-distended, normal bowel sounds Female genitourinary: Present: normal - Integumentary Integumentary: Present: clear, warm, dry - Musculoskeletal Musculoskeletal: gait normal, strength equal bilaterally - Psychiatric Psychiatric: appropriate mood/affect, intact judgment & insight - Neurologic Neurologic: CNII-XII intact, moves all extremities Plan Activity: advance as tolerated Weight Bearing Status: Weight Bear as Tolerated Diet: regular Follow up with: PRIMARY CAREMD [Primary Care Provider] - 3-5 Days SHRUTHI PAULINO MD [Staff Physician] - 7 Days Prescriptions: metroNIDAZOLE [Flagyl] 500 mg PO Q8HR #21 tablet oxyCODONE /ACETAMINOPHEN [Percocet 5/325 mg] 1 tab PO Q6H PRN #10 tablet PRN Reason: Pain, Moderate (4-6)
[2021-07-25] MEDS ORDERED: ONDANSETRON 4 MG ODT TAB PO PRN (09:30)
[2021-07-25] MEDS: FAMOTIDINE 20 MG/2 ML INJ IV SCH (11:11)
[2021-07-25] MEDS: NYSTATIN CREAM 15 GM TUBE TP SCH (11:11)
[2021-07-25 11:32] VITALS: BP 154/91
== END 2021-07-25 16:27 | disposition home or self-care (01) | DRG 392 ==
LOC: ED 18:39 → 4A 07-20 07:27
PROVIDERS: ADMIT Hospitalist; ATTEND Hospitalist
DX: K57.20 Diverticulitis of large intestine with perforation and abscess without bleeding (principal); Z88.0 Allergy status to penicillin; Z88.2 Allergy status to sulfonamides; E87.6 Hypokalemia; D72.829 Elevated white blood cell count, unspecified
CPT/HCPCS: 36415; 74177; 80048; 80053; 80076; 81001; 82140; 82962; 84703; 85007; 85025; 85027; 87040; G0378; J1170; J1885; J1956; J2270; J2405; J2765; J3480; J7030; J7042; Q9967